=== PATIENT | male | born 1945 | race Caucasian/White ===

== ENCOUNTER 2021-12-19 09:16 | Inpatient (IN) ==
--- NOTE | 2021-12-19 09:43 | XRay Report ---
HISTORY: Hypoxia, Covid positive, cough FINDINGS: There are hazy alveolar infiltrates throughout both lungs predominantly involving the lower lobes. There may be a small left-sided pleural effusion. The lung volumes are normal. The heart size is within normal limits. There are calcified plaques in the aortic arch. IMPRESSION: Moderate bilateral pneumonia Interpreted and Authenticated by: Mulugeta Menezes 12/19/21
[2021-12-19 10:36] LABS: Basophils # (Auto) 0.03 K/mcL (0.00-0.30); Basophils % (Auto) 0.3 % (0.0-2.0); Eosinophils # (Auto) 0.28 K/mcL (0.00-0.70); Eosinophils % (Auto) 2.9 % (0.0-7.0); Hematocrit 49.4 % (40.1-51.0); Hemoglobin 16.1 g/dL (13.7-17.5); Lymphocytes # (Auto) 1.01 K/mcL (1.50-4.80); Lymphocytes % (Auto) 10.3 % (15.5-49.0); Mean Cell Volume 82.7 fL (80.0-100.0); Mean Corpuscular HGB Conc 32.6 g/dL (31.0-36.0); Mean Platelet Volume 9.4 fL (7.4-10.4); Monocytes # (Auto) 0.76 K/mcL (0.10-0.90); Monocytes % (Auto) 7.8 % (1.0-12.0); Neutrophils % (Auto) 78.7 % (38.0-78.0); Platelet Count 226 K/mcL (140-440); RBC 5.97 M/mcL (4.63-6.08); Red Cell Distribution Width 16.9 % (11.5-14.5); WBC 9.8 K/mcL (4.5-11.0)
--- NOTE | 2021-12-19 10:37 | Emergency Department Note ---
HPI General Chief complaint: Shortness of Breath/Dyspnea Stated complaint: hypoxia Time Seen by Provider: 12/19/21 09:46 Source: patient Mode of arrival: ambulatory Limitations: no limitations History of Present Illness HPI Narrative: Narrative: 76 yo M w/ h/o CKD, HTN, HLD, Castleman disease (lymphoproliferative d/o) obesity who is vaccinated against COVID p/w SOB and hypoxia. He was Dx'd w/ COVID19 about one week ago at his PCPs office, and was started on decadron and tessalon perrles. He came in today for planned MAB Tx but was found to be hypoxic and was referred here. Here in the ED he c/o mild SOB, dry cough, malaise, but reports that his SX have been improving. He has no CP, no N/V/D. He has had some increased on chronic peripheral edema but attributes this to skipping his water pill today as he had to come in to town. Related Data Home Medications Medication Instructions Recorded Confirmed carvedilol 25 mg tablet 12.5 mg PO QDAY tab 07/31/16 12/11/21 cholecalciferol (vitamin D3) 125 5,000 unit PO QDAY cap 07/31/16 12/11/21 mcg (5,000 unit) capsule lisinopril 20 mg tablet 10 mg PO QDAY 07/31/16 12/11/21 pravastatin 40 mg tablet 40 mg PO QHS 07/31/16 12/11/21 spironolactone 25 1 tab PO QDAY 07/31/16 12/11/21 mg-hydrochlorothiazide 25 mg tablet latanoprost 0.005 % eye drops 1 drp OPHTHALMIC QDAY 09/17/17 12/11/21 torsemide 20 mg tablet 10 mg PO QDAY tab 06/13/21 12/11/21 Previous Rx's Medication Instructions Recorded epinephrine 0.3 mg/0.3 mL 0.3 mg (0.3 mL) IM ONCE #2 each 05/04/19 injection, auto-injector (EpiPen 2-Tam) clobetasol 0.05 % topical cream 1 applic TOPICAL BID 14 Days #15 g 07/18/20 tramadol 50 mg tablet 50 mg PO QHS PRN #90 tab 05/16/21 benzonatate 100 mg capsule 100 mg PO TID PRN #30 cap 12/11/21 dexamethasone 6 mg tablet 6 mg PO QDAY #10 tab 12/11/21 Allergies Allergy/AdvReac Type Severity Reaction Status Date / Time bee venom protein (honey bee) Allergy Severe Anaphylaxis Verified 12/19/21 09:21 hydrocodone Allergy Severe Rash Verified 12/19/21 09:21 oxycodone [Oxycodone] Allergy Severe Rash Verified 12/19/21 09:21 prednisone Allergy Severe Effects Verified 12/19/21 09:21 vision allopurinol Allergy Unknown Severe rash Verified 12/19/21 09:21 Review of Systems ROS ROS Narrative: Narrative: All systems ED: reviewed and negative except as stated. [facility] Narrative Patient History Narrative: Narrative: Medical/Surgical/Family History All Active Problems (Updated 12/19/21 @ 11:56 by Harsha Vazquez MD) Acute dyspnea (Acute) Pneumonia due to 2019 novel coronavirus (Acute) CKD (chronic kidney disease) (Acute) Obesity (Acute) Medicare annual wellness visit, initial (Acute) Bee sting reaction (Acute) Osteoarthritis of left knee (Chronic) BPPV (benign paroxysmal positional vertigo) (Acute) Chronic kidney disease, stage III (moderate) (Chronic) Past history of chewing tobacco use (Chronic) Vitamin D deficiency (Chronic) Renal osteodystrophy (Chronic 05/21/12) Obesity, morbid (Chronic) Castleman disease (Chronic) Joint pain (Chronic) Hyperlipidemia (Chronic) Hypertension, essential (Chronic) Arthritis (Chronic) Medical History Acute sinusitis, unspecified Arthritis BPPV (benign paroxysmal positional vertigo) Bronchitis, acute Castleman disease 2006 Chronic kidney disease, stage III (moderate) DMII (diabetes mellitus, type 2) Borderline Gout (05/21/12) Hyperlipidemia Hypertension, essential Impotence, organic Joint pain Kidney failure 2006 Medicare annual wellness visit, initial Migraine Obesity Obesity, morbid Overweight Past history of chewing tobacco use Pharyngitis, acute Pleural effusion Renal failure, acute history due to ATN, May 2007. Which required hemodialysis for a few weeks. Renal osteodystrophy (05/21/12) SOB (shortness of breath) Venous insufficiency Vitamin D deficiency Surgical History H/O lymph node biopsy (06/08/07) Microscopic Diagnosis; Lymph node - Mediastinal, biopsy: Angiofollicular hyperplasia, consistent with cattleman disease. History of arthroplasty of right knee (11/07/17) Hx of tonsillectomy Family History Father Arthritis Hypertension, essential Mother Arthritis Diabetes Hypertension, essential Stroke Daughter Anemia Social History Smoking Status: Former smoker Alcohol Intake Frequency: a few times a week Substance Use: does not use Exam Narrative Narrative: Narrative: General Limitations: no limitations General appearance: Present alert and in no apparent distress Head Head: Present atraumatic and normocephalic ENT ENT: Present normal oropharynx and mucous membranes moist Chest Chest: Present normal inspection and symmetric chest wall rise Respiratory Respiratory: Present normal lung sounds bilaterally; Absent accessory muscle use or decreased breath sounds Cardiovascular Cardiovascular: Present regular rate, normal rhythm, +S1, +S2 and other (2+ B/L radial pulses); Absent systolic murmur or diastolic murmur Adbominal Abdominal: Present soft and normal bowel sounds; Absent distention or tenderness Extremities Extremities: Present pedal edema (1+ B/L pitting) and other (R calf TTP which pt reports is chronic, L calf w/ no TTP) Neurological Neurological: Present alert and oriented X3 Psychiatric Psychiatric: Present normal affect Skin Skin: Present warm (WNL) and dry Course Vital Signs Vital signs: Vital Signs Temperature 97.4 F 12/19/21 09:17 Pulse Rate 92 H 12/19/21 09:17 Respiratory Rate 21 12/19/21 09:17 Blood Pressure 154/76 12/19/21 09:17 Pulse Oximetry (%) 77 L 12/19/21 09:17 Temperature 97.4 F 12/19/21 09:17 Pulse Rate 92 H 12/19/21 12:23 Respiratory Rate 22 12/19/21 12:23 Blood Pressure 120/63 12/19/21 12:23 Pulse Oximetry (%) 92 12/19/21 12:23 MDM MDM Narrative Medical decision making narrative: Narrative: 76 yo M w/ h/o CKD, HTN, HLD, Castleman disease (lymphoproliferative d/o) obe sity who is vaccinated against COVID p/w SOB and hypoxia. DDx - COVID19, sepsis, PE, bacterial PNA, CHF Pt presented clinically stable, in NAD. His Hx was c/w COVID19 PNA and CXR was c/w this as well. He did not have leukocytosis or other evidence of bacterial sepsis, there was no indication for abx. PE was unlikely w/ no recent worsening, and w/ pt exhibiting classic "happy hypoxia" Sx. CHF was unlikely based on CXR and presence of COVID to better explain Sx and hypoxia. Pt was Tx'd w/ 2L NC which was effective at keeping his sats in the 90s at rest but w/ any ambulation he would drop to the low 80s. He was thus at risk for decompensation at home even w/ home O2 and admission was indicated. Given hypoxia and hospital admission, decadron was indicated and was given in the ED, although I'm not sure how helpful it will be given his previous outpt doses of the same. Pt was accepted by Dr Weiss. Lab Data Lab results reviewed: Yes I reviewed the patient's lab results. Result diagrams: 12/19/21 10:00 12/19/21 10:00 Labs: Lab Results 12/19/21 12/19/21 12/19/21 Range/Units 10:00 10:00 10:00 WBC 9.8 (4.5-11.0) K/mcL RBC 5.97 (4.63-6.08) M/mcL Hgb 16.1 (13.7-17.5) g/dL Hct 49.4 (40.1-51.0) % MCV 82.7 (80.0-100.0) fL MCH 27.0 (26.0-34.0) pg MCHC 32.6 (31.0-36.0) g/dL RDW 16.9 H (11.5-14.5) % Plt Count 226 (140-440) K/mcL MPV 9.4 (7.4-10.4) fL Neut % (Auto) 78.7 H (38.0-78.0) % Lymph % (Auto) 10.3 L (15.5-49.0) % [place] % (Auto) 7.8 (1.0-12.0) % Eos % (Auto) 2.9 (0.0-7.0) % Baso % (Auto) 0.3 (0.0-2.0) % Lymph # (Auto) 1.01 L (1.50-4.80) K/mcL [place] # (Auto) 0.76 (0.10-0.90) K/mcL Eos # (Auto) 0.28 (0.00-0.70) K/mcL Baso # (Auto) 0.03 (0.00-0.30) K/mcL Absolute Neutrophils 7.69 (1.80-8.00) K/mcL VBG Lactic Acid 1.0 (0.5-2.0) mmol/L Sodium 135 (133-145) mmol/L Potassium 4.0 (3.3-5.1) mmol/L Chloride 95 L (96-108) mmol/L Carbon Dioxide 30 (22-30) mmol/L Anion Gap 10.0 (8.0-16.0) BUN 19 (8-23) mg/dL Creatinine 1.1 (0.7-1.2) mg/dL GFR Calculation 65 Glucose 107 H (70-105) mg/dL Calcium 8.5 L (8.6-10.4) mg/dL Total Bilirubin 1.1 H (0.1-1.0) mg/dL AST 17 (<40) U/L ALT 15 (<40) U/L Alkaline Phosphatase 48 (39-117) U/L Total Protein 6.7 (5.9-8.4) gm/dL Albumin 3.0 L (3.2-5.2) gm/dL Globulin 3.7 (2.2-3.7) gm/dL Albumin/Globulin Ratio 0.8 L (1.0-2.3) Procalcitonin 0.11 H (<0.10) ng/mL Discharge Plan Patient/Caregiver Discharge Instructions Pt seen by SOLE ASSESSOR/PA only: No Clinical Impression: Acute dyspnea, Pneumonia due to 2019 novel coronavirus, CKD (chronic kidney disease), Obesity Patient Disposition: Xfer As Inpt ([facility]) Condition: Fair Follow up with: Aneesh Head DO [Primary Care Provider] - Prescriptions: No Action epinephrine [EpiPen 2-Tam] 0.3 mg/0.3 mL auto-injector 0.3 mg IM ONCE Qty: 2 2RF clobetasol 0.05 % cream 1 applic TOPICAL BID 14 Days Qty: 15 0RF carvedilol 25 mg tablet 12.5 mg PO QDAY 0RF pravastatin 40 mg tablet 40 mg PO QHS 0RF spironolacton-hydrochlorothiaz 25-25 mg tablet 1 tab PO QDAY 0RF lisinopril 20 mg tablet 10 mg PO QDAY 0RF cholecalciferol (vitamin D3) 5,000 unit capsule 5,000 unit PO QDAY 0RF latanoprost 0.005 % drops 1 drp OPHTHALMIC QDAY 0RF tramadol 50 mg tablet 50 mg PO QHS PRN (Reason: pain) Qty: 90 0RF torsemide 20 mg tablet 10 mg PO QDAY 0RF dexamethasone 6 mg tablet 6 mg PO QDAY Qty: 10 0RF benzonatate 100 mg capsule 100 mg PO TID PRN (Reason: cough) Qty: 30 0RF
[2021-12-19 11:08] LABS: ALT/SGPT 15 U/L (<40); AST/SGOT 17 U/L (<40); Albumin/Globulin Ratio 0.8 (1.0-2.3); Alkaline Phosphatase 48 U/L (39-117); Bilirubin,Total 1.1 mg/dL (0.1-1.0); Blood Urea Nitrogen 19 mg/dL (8-23); Calcium 8.5 mg/dL (8.6-10.4); Carbon Dioxide 30 mmol/L (22-30); Chloride 95 mmol/L (96-108); Globulin 3.7 gm/dL (2.2-3.7); Glomerular Filtration Rate 65; Glucose 107 mg/dL (70-105)
[2021-12-19] MEDS ORDERED: DEXAMETHASONE 10 MG/ML VIAL IV ONE (11:31)
--- NOTE | 2021-12-19 13:19 | Internal Med History&Physical ---
HPI History of Present Illness Patient information: Note initiated : 12/19/21 at 1:12 pm Service Date, if different from initiated Date: [] Patient: Ryley Moyer a 76 y/o M admitted on for hypoxia. Chief Complaint: [Shortness of breath Chief complaint: Shortness of breath History of present illness: Mr. Moyer is a 76 year old M history of chronic kidney disease stage III, essential hypertension, mixed dyslipidemia, arthritis, presenting with 1 week history of shortness of breath, and productive cough with yellow sputum. He is vaccinated against COVID-pneumonia. He started to have symptoms of shortness of breath as well as productive cough with yellow sputum 1 week ago. He presented to his PCP office, was being diagnosed with COVID-pneumonia, and was being prescribed with dexamethasone. Today, he was supposed to come back to the office for monoclonal antibodies administrations, but instead was found to be hypoxic with oxygen saturations in the 70s on room air so he was being sent to our ED for further evaluations. He was placed on 2 L of oxygen which maintains his SPO2 in the 90s. His oxygen saturations dropped to the 80s on 2 L of oxygen upon ambulation so admission request was being made. Labs were otherwise largely within normal limits except for mild elevation in inflammatory markers. Chest x-ray showing bilateral pulmonary infiltrates typical for COVID- pneumonia. Constitutional Constitutional: Absent chills, excessive sweating, fatigue, fever(s) or weakness EENT Eyes: Absent blurry vision, change in vision, loss of vision or other visual disturbances Ears: Absent decreased hearing or tinnitus Nose, mouth and throat: Absent abnormal hearing, dry mouth, headache(s), nasal congestion or sore throat Cardiovascular Cardiovascular: Absent chest pain, chest pain at rest, edema, irregular heart rhythm or palpatations Respiratory Respiratory: Present cough, dyspnea and excessive phlegm production; Absent wheezing Gastrointestinal Gastrointestinal: Absent abdominal pain, constipation, diarrhea, nausea or vomiting Musculoskeletal Musculoskeletal: Absent back pain, deformity, limited range of motion, muscle cramps, muscle weakness or numbness Integumentary Integumentary: Absent lesions, rash or wounds Neurological Neurological: Absent focal weakness, headache(s) or numbness Psychiatric Psychiatric: Absent anxiety, depression or hallucinations PFSH PFSH All Active Problems (Updated 12/19/21 @ 13:17 by Ko Weiss MD) Morbid obesity (Acute) Acute dyspnea (Acute) Pneumonia due to 2019 novel coronavirus (Acute) CKD (chronic kidney disease) (Acute) Obesity (Acute) Medicare annual wellness visit, initial (Acute) Bee sting reaction (Acute) Osteoarthritis of left knee (Chronic) BPPV (benign paroxysmal positional vertigo) (Acute) Chronic kidney disease, stage III (moderate) (Chronic) Past history of chewing tobacco use (Chronic) Vitamin D deficiency (Chronic) Renal osteodystrophy (Chronic 05/21/12) Obesity, morbid (Chronic) Castleman disease (Chronic) Joint pain (Chronic) Hyperlipidemia (Chronic) Hypertension, essential (Chronic) Arthritis (Chronic) Medical History Acute sinusitis, unspecified Arthritis BPPV (benign paroxysmal positional vertigo) Bronchitis, acute Castleman disease 2006 Chronic kidney disease, stage III (moderate) DMII (diabetes mellitus, type 2) Borderline Gout (05/21/12) Hyperlipidemia Hypertension, essential Impotence, organic Joint pain Kidney failure 2006 Medicare annual wellness visit, initial Migraine Obesity Obesity, morbid Overweight Past history of chewing tobacco use Pharyngitis, acute Pleural effusion Renal failure, acute history due to ATN, May 2007. Which required hemodialysis for a few weeks. Renal osteodystrophy (05/21/12) SOB (shortness of breath) Venous insufficiency Vitamin D deficiency Surgical History H/O lymph node biopsy (06/08/07) Microscopic Diagnosis; Lymph node - Mediastinal, biopsy: Angiofollicular hyperplasia, consistent with cattleman disease. History of arthroplasty of right knee (11/07/17) Hx of tonsillectomy Family History Father Arthritis Hypertension, essential Mother Arthritis Diabetes Hypertension, essential Stroke Daughter Anemia Social History marital status: occupation: drill setup operator-tractor and manager auto for [employer] other: Children-3 alcohol intake frequency: a few times a week substance use type: does not use MEDS/ALLERGIES Home Medications and Allergies Home Medications Medication Instructions Recorded Confirmed Type carvedilol 25 mg tablet 12.5 mg PO QDAY tab 07/31/16 12/11/21 History cholecalciferol (vitamin D3) 125 5,000 unit PO QDAY cap 07/31/16 12/11/21 History mcg (5,000 unit) capsule lisinopril 20 mg tablet 10 mg PO QDAY 07/31/16 12/11/21 History pravastatin 40 mg tablet 40 mg PO QHS 07/31/16 12/11/21 History spironolactone 25 1 tab PO QDAY 07/31/16 12/11/21 History mg-hydrochlorothiazide 25 mg tablet latanoprost 0.005 % eye drops 1 drp OPHTHALMIC QDAY 09/17/17 12/11/21 History epinephrine 0.3 mg/0.3 mL 0.3 mg (0.3 mL) IM ONCE #2 each 05/04/19 12/11/21 Rx injection, auto-injector (EpiPen 2-Tam) clobetasol 0.05 % topical cream 1 applic TOPICAL BID 14 Days #15 g 07/18/20 12/11/21 Rx tramadol 50 mg tablet 50 mg PO QHS PRN #90 tab 05/16/21 12/11/21 Rx torsemide 20 mg tablet 10 mg PO QDAY tab 06/13/21 12/11/21 History benzonatate 100 mg capsule 100 mg PO TID PRN #30 cap 12/11/21 12/11/21 Rx dexamethasone 6 mg tablet 6 mg PO QDAY #10 tab 12/11/21 12/11/21 Rx Allergies Allergy/AdvReac Type Severity Reaction Status Date / Time bee venom protein (honey bee) Allergy Severe Anaphylaxis Verified 12/19/21 09:21 hydrocodone Allergy Severe Rash Verified 12/19/21 09:21 oxycodone [Oxycodone] Allergy Severe Rash Verified 12/19/21 09:21 prednisone Allergy Severe Effects Verified 12/19/21 09:21 vision allopurinol Allergy Unknown Severe rash Verified 12/19/21 09:21 EXAM Constitutional Vitals: Temp Pulse Resp BP Pulse Ox 36.3 C 82 22 111/57 92 12/19/21 09:17 12/19/21 12:46 12/19/21 13:01 12/19/21 13:01 12/19/21 12:46 General appearance: cooperative, morbidly obese and no acute distress Head Head exam: Present atraumatic and normocephalic Eye Eye exam: Present EOMI and PERRL ENT ENT exam: Present mucous membranes moist, normal exam and normal external ear exam Additional comments: Nasal cannula in place Neck Neck exam: Present normal inspection; Absent lymphadenopathy, tenderness or thyromegaly Respiratory Respiratory exam: Present decreased breath sounds and wheezes; Absent accessory muscle use or respiratory distress Cardiovascular Cardiovascular exam: Present normal rate and rhythm; Absent JVD GI/Abdominal GI/Abdominal exam: Present normal bowel sounds and soft; Absent organomegaly or tenderness Rectal Rectal exam: Present deferred Extremities Exam Extremities exam: Present full ROM, normal capillary refill and normal inspection; Absent tenderness Neurological Exam Neurological exam: Present alert, CN II-XII intact and oriented X3; Absent motor sensory deficit Psychiatric Psychiatric exam: Present normal affect and normal mood; Absent anxious or depressed Skin Skin exam: Present dry and intact DATA Data Completed and Pending Labs: Labs from last 24 hours 12/19/21 12/19/21 12/19/21 10:00 10:00 10:00 WBC 9.8 RBC 5.97 Hgb 16.1 Hct 49.4 MCV 82.7 MCH 27.0 MCHC 32.6 RDW 16.9 H Plt Count 226 MPV 9.4 Neut % (Auto) 78.7 H Lymph % (Auto) 10.3 L [place] % (Auto) 7.8 Eos % (Auto) 2.9 Baso % (Auto) 0.3 Lymph # (Auto) 1.01 L [place] # (Auto) 0.76 Eos # (Auto) 0.28 Baso # (Auto) 0.03 Absolute Neutrophils 7.69 VBG Lactic Acid 1.0 Sodium 135 Potassium 4.0 Chloride 95 L Carbon Dioxide 30 Anion Gap 10.0 BUN 19 Creatinine 1.1 GFR Calculation 65 Glucose 107 H Calcium 8.5 L Total Bilirubin 1.1 H AST 17 ALT 15 Alkaline Phosphatase 48 Total Protein 6.7 Albumin 3.0 L Globulin 3.7 Albumin/Globulin Ratio 0.8 L Procalcitonin 0.11 H A/P Assessment and plan (1) Pneumonia due to 2019 novel coronavirus: Status: Acute (2) Acute dyspnea: Status: Acute (3) Hyperlipidemia: Status: Chronic Qualifiers: Hyperlipidemia type: pure hypercholesterolemia Qualified Code(s): E78.00 - Pure hypercholesterolemia, unspecified; E78.0 - Pure hypercholesterolemia (4) Hypertension, essential: Status: Chronic (5) Arthritis: Status: Chronic (6) Chronic kidney disease, stage III (moderate): Status: Chronic Qualifiers: Chronic kidney disease stage 3 subtype: stage 3a (GFR 45-59) Qualified Code(s): N18.31 - Chronic kidney disease, stage 3a (7) Morbid obesity: Status: Acute Narrative A/P Narrative: Assessment and Plans: 1. CoVID pneumonia: Admit to inpatient med surg telemetry Isolation: airborne and contact Supplemental oxygen therapy titrate to achieve spo2>92%, currently on 2L/min Remdesivir Dexamethasone Lovenox Tylenol PRN fever DuoNEB NEB PRN wheezing Robitussin DM PRN cough cbc w/ auto diff in the morning to trend WBC Inflammatory markers Blood cultures X2 Serial Lactic acid 2. Essential HTN: Currently nornotensive Continue home regimen of oral antihypertensives 3. Mixed dyslipidemia: Continue statin therapy 4. Chronic kidney disease stage III: Avoid nephrotoxic agents Saline lock Daily CMP to trend kidney functions 5. 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 h/o arthritis: Continue Tramadol PRN arthritic pain GI ppx: not currently indicated DVT ppx: Lovenox Code status: Full Prognosis: guarded Disposition: inpatient med surg telemetry Time Spent With Patient Time: Total time spent is greater than 50% in coordination of care (as documented) at patient's floor/unit and/or counseling patient: Total time spent with greater than 50% in coordination of care (as documented) at patient's floor/unit and/or counseling patient:: Greater than 35 minutes
[2021-12-19] MEDS ORDERED: REMDESIVIR 200 MG in 0.9 % SODIUM CHLORIDE 250 ML IV ONE (18:55)
[2021-12-19] MEDS ORDERED: hydrALAZINE 20 MG/ML VIAL IV PRN (18:55)
[2021-12-19] MEDS ORDERED: ONDANSETRON 4 MG/2 ML VIAL IV PRN (18:55)
[2021-12-19] MEDS ORDERED: traMADol (PP) 50 MG TABLET (#4) PO PRN (18:55)
[2021-12-19] MEDS ORDERED: ACETAMINOPHEN 325 MG TABLET PO PRN (18:55)
[2021-12-19] MEDS ORDERED: ZOLPIDEM 5 MG TABLET PO PRN (18:55)
[2021-12-19] MEDS ORDERED: IPRATROPIUM/ALBUTEROL 3 ML AMPUL.NEB NEB PRN (18:55)
[2021-12-19] MEDS ORDERED: guaiFENesin/DEXTROMETHORPHAN ORAL SOL PO PRN (18:55)
[2021-12-19] MEDS ORDERED: BENZONATATE 100 MG CAPSULE PO PRN (18:55)
[2021-12-19] MEDS ORDERED: traMADol 50 MG TABLET PO PRN (19:01)
[2021-12-19] MEDS: 0.9 % SODIUM CHLORIDE 10 ML SYRINGE IV SCH ×2 (19:42→20:37)
[2021-12-19] MEDS: SENNOSIDES 1 TABLET PO SCH (20:13)
[2021-12-19] MEDS: DOCUSATE SODIUM 100 MG CAPSULE PO SCH (20:13)
[2021-12-19] MEDS: CLOBETASOL PROPIONATE 1 DOSE TUBE TOPICAL SCH (20:13)
[2021-12-19] MEDS: SIMVASTATIN 20 MG TABLET PO SCH (20:13)
[2021-12-19] MEDS ORDERED: PRAVASTATIN 40 MG TABLET PO SCH (21:00)
[2021-12-19 21:11] LABS: Lactate Dehydrogenase 302 U/L (135-225)
[2021-12-19 21:15] LABS: INR 1.3 (0.9-1.1); Prothrombin Time 16.5 sec (11.9-14.5)
[2021-12-19 21:21] LABS: Ferritin 295.7 ng/mL (30.0-400.0)
[2021-12-20] MEDS: 0.9 % SODIUM CHLORIDE 10 ML SYRINGE IV SCH ×3 (04:21→22:00)
[2021-12-20 07:15] LABS: Basophils # (Auto) 0.02 K/mcL (0.00-0.30); Basophils % (Auto) 0.3 % (0.0-2.0); Eosinophils # (Auto) 0.05 K/mcL (0.00-0.70); Eosinophils % (Auto) 0.7 % (0.0-7.0); Hematocrit 45.9 % (40.1-51.0); Hemoglobin 14.6 g/dL (13.7-17.5); Lymphocytes # (Auto) 0.79 K/mcL (1.50-4.80); Mean Cell Volume 84.5 fL (80.0-100.0); Mean Corpuscular HGB Conc 31.8 g/dL (31.0-36.0); Mean Platelet Volume 9.2 fL (7.4-10.4); Monocytes # (Auto) 0.57 K/mcL (0.10-0.90); Platelet Count 215 K/mcL (140-440); RBC 5.43 M/mcL (4.63-6.08); Red Cell Distribution Width 16.4 % (11.5-14.5); WBC 7.2 K/mcL (4.5-11.0)
[2021-12-20 07:36] LABS: ALT/SGPT 14 U/L (<40); AST/SGOT 16 U/L (<40); Albumin 2.6 gm/dL (3.2-5.2); Albumin/Globulin Ratio 0.7 (1.0-2.3); Alkaline Phosphatase 47 U/L (39-117); Bilirubin,Total 0.7 mg/dL (0.1-1.0); Blood Urea Nitrogen 20 mg/dL (8-23); Calcium 8.3 mg/dL (8.6-10.4); Carbon Dioxide 28 mmol/L (22-30); Chloride 100 mmol/L (96-108); Globulin 3.6 gm/dL (2.2-3.7); Glomerular Filtration Rate 65; Glucose 100 mg/dL (70-105); Phosphorous 3.7 mg/dL (2.5-4.5)
[2021-12-20] MEDS ORDERED: [UNRECOGNIZED DRUG - OTHER] PO SCH (09:00)
[2021-12-20] MEDS: DOCUSATE SODIUM 100 MG CAPSULE PO SCH ×2 (09:34→22:00)
[2021-12-20] MEDS: CARVEDILOL 12.5 MG TABLET PO SCH (09:34)
[2021-12-20] MEDS: ENOXAPARIN 40 MG/0.4 ML SYRINGE SQ SCH (09:34)
[2021-12-20] MEDS: LISINOPRIL 20 MG TABLET PO SCH (09:35)
[2021-12-20] MEDS: DEXAMETHASONE 4 MG TABLET PO SCH (09:35)
[2021-12-20] MEDS: VITAMIN D3 125 MCG TABLET PO SCH (09:35)
[2021-12-20] MEDS: HYDROCHLOROTHIAZIDE 25 MG TABLET PO SCH (09:35)
[2021-12-20] MEDS: LATANOPROST OPHTH DROPS 2.5ML BOTTLE OU SCH (09:36)
[2021-12-20] MEDS: SPIRONOLACTONE 25 MG TABLET PO SCH (09:36)
[2021-12-20] MEDS: CLOBETASOL PROPIONATE 1 DOSE TUBE TOPICAL SCH ×2 (09:36→22:00)
[2021-12-20] MEDS: REMDESIVIR 100 MG in 0.9 % SODIUM CHLORIDE 250 ML IV SCH (12:16)
[2021-12-20] MEDS: TORSEMIDE 20 MG TABLET PO SCH (12:16)
--- NOTE | 2021-12-20 15:13 | Internal Med Progress Note ---
SUBJECTIVE Subjective Patient information: Note initiated : 12/20/21 at 3:10 pm Service Date, if different from initiated Date: [] Patient: Ryley Moyer a 76 y/o M admitted on 12/19/21 for hypoxia. Chief Complaint: [shortness of breath] Principal diagnosis: CoVID pneumonia Interval history: History of present illness: Mr. Moyer is a 76 year old M history of chronic kidney disease stage III, essential hypertension, mixed dyslipidemia, arthritis, presenting with 1 week history of shortness of breath, and productive cough with yellow sputum. He is vaccinated against COVID-pneumonia. He started to have symptoms of shortness of breath as well as productive cough with yellow sputum 1 week ago. He presented to his PCP office, was being diagnosed with COVID-pneumonia, and was being prescribed with dexamethasone. Today, he was supposed to come back to the office for monoclonal antibodies administrations, but instead was found to be hypoxic with oxygen saturations in the 70s on room air so he was being sent to our ED for further evaluations. He was placed on 2 L of oxygen which maintains his SPO2 in the 90s. His oxygen saturations dropped to the 80s on 2 L of oxygen upon ambulation so admission request was being made. Labs were otherwise largely within normal limits except for mild elevation in inflammatory markers. Chest x-ray showing bilateral pulmonary infiltrates typical for COVID-pneumonia. 12/20: Afebrile overnight. On 3L/min oxygen. Blood cultures no growth to date. On dexamethasone and Remdesivir. c/o improving degree of shortness of breath. c/o productive cough wtih green sputum. Denies wheezing or chest pain. Denies fever, chills, or sweating. Pertinent ROS: c/o improving degree of shortness of breath. c/o productive cough wtih green sputum. Denies wheezing or chest pain. Denies fever, chills, or sweating. Constitutional Vitals: Vital Signs Temp Pulse Resp BP Pulse Ox 36.3 C 80 16 108/71 93 12/20/21 12:00 12/20/21 12:00 12/20/21 12:00 12/20/21 12:00 12/20/21 12:00 Period Temp Pulse Resp BP Sys/Lynch Pulse Ox Last 24 Hr 36.3 C-36.5 C 71-93 15-27 108-172/65-119 89-94 Intake and Output 12/20/21 12/20/21 12/20/21 05:59 13:59 21:59 Intake Total 650 480 Output Total 300 350 Balance 350 130 Weight 181.437 kg Patient Weight 12/21/21 05:59 Weight 181.437 kg Intake & Output: Intake & Output 12/20/21 12/20/21 12/20/21 05:59 13:59 21:59 Intake Total 650 480 Output Total 300 350 Balance 350 130 Weight 181.437 kg Intake: IV 250 Veklury 200 mg In Sodium 250 Chloride 0.9% 250 ml @ 500 mls/ hr IV ONCE ONE Rx#:[id number] Oral 400 480 Output: Void Amount 300 350 Other: Meal Breakfast Percent of Meal Consumed 100% Feeding Ability Independent Urine Appearance Clear Urine Color Bright Yellow General appearance: cooperative, morbidly obese and no acute distress Head Head exam: Present atraumatic and normal inspection Eye Eye exam: Present normal appearance ENT ENT exam: Present mucous membranes moist, normal exam and normal external ear exam Additional comments: Nasal cannula in place Neck Neck exam: Present normal inspection Respiratory Respiratory exam: Present decreased breath sounds Cardiovascular Cardiovascular exam: Present normal rate and rhythm GI/Abdominal GI/Abdominal exam: Present normal bowel sounds Back Exam Back exam: Present normal inspection Neurological Exam Neurological exam: Present alert and oriented X3 Skin Skin exam: Present intact and warm OBJ DATA Labs CBC & Chem 7: 12/20/21 05:27 12/20/21 05:27 Labs: Abnormal Lab Results 12/20/21 12/20/21 12/19/21 05:27 05:27 19:48 RDW 16.4 H Neut % (Auto) 80.0 H Lymph % (Auto) 11.0 L Lymph # (Auto) 0.79 L PT INR Fibrinogen D-Dimer Chloride Glucose Calcium 8.3 L Total Bilirubin Lactate Dehydrogenase 302 H C-Reactive Protein 7.90 H Albumin 2.6 L Albumin/Globulin Ratio 0.7 L Procalcitonin 12/19/21 12/19/21 12/19/21 19:48 10:00 10:00 RDW Neut % (Auto) Lymph % (Auto) Lymph # (Auto) PT 16.5 H INR 1.3 H Fibrinogen 643 H D-Dimer 1.03 H Chloride 95 L Glucose 107 H Calcium 8.5 L Total Bilirubin 1.1 H Lactate Dehydrogenase C-Reactive Protein Albumin 3.0 L Albumin/Globulin Ratio 0.8 L Procalcitonin 0.11 H 12/19/21 10:00 RDW 16.9 H Neut % (Auto) 78.7 H Lymph % (Auto) 10.3 L Lymph # (Auto) 1.01 L PT INR Fibrinogen D-Dimer Chloride Glucose Calcium Total Bilirubin Lactate Dehydrogenase C-Reactive Protein Albumin Albumin/Globulin Ratio Procalcitonin Meds: Medications Acetaminophen (Acetaminophen 325 Mg Tablet) 650 mg PO Q6HP PRN; Protocol PRN Reason: Per Pain Protocol/Fever > 101 Albuterol/Ipratropium (Ipratropium/Albuterol 3 Ml Ampul.Neb) 3 ml NEB Q4HRT PRN PRN Reason: Wheezing Benzonatate (Benzonatate 100 Mg Capsule) 100 mg PO TIDP PRN PRN Reason: cough Carvedilol (Carvedilol 12.5 Mg Tablet) 12.5 mg PO QDAY [facility] Last Admin: 12/20/21 09:34 Dose: 12.5 mg Documented by: Clobetasol Propionate (Clobetasol Propionate 1 Dose Tube) 1 dose TOPICAL BID [facility] Last Admin: 12/20/21 09:36 Dose: Not Given Documented by: Dexamethasone (Dexamethasone 4 Mg Tablet) 6 mg PO QDAY [facility] Last Admin: 12/20/21 09:35 Dose: 6 mg Documented by: Docusate Sodium (Docusate Sodium 100 Mg Capsule) 100 mg PO BID [facility] Last Admin: 12/20/21 09:34 Dose: 100 mg Documented by: Enoxaparin Sodium (Enoxaparin 40 Mg/0.4 Ml Syringe) 40 mg SQ DAILY [facility] Last Admin: 12/20/21 09:34 Dose: 40 mg Documented by: Guaifenesin (Guaifenesin/Dextromethorphan Oral Mel) 10 ml PO Q4HP PRN PRN Reason: Cough Hydralazine HCl (Hydralazine 20 Mg/Ml Vial) 10 mg IV Q4-6HP PRN PRN Reason: Hypertension Hydrochlorothiazide (Hydrochlorothiazide 25 Mg Tablet) 25 mg PO DAILY [facility] Last Admin: 12/20/21 09:35 Dose: 25 mg Documented by: REMDESIVIR 100 mg/ Sodium (Chloride) 250 mls @ 500 mls/hr IV Q24H [facility] Stop: 12/23/21 11:29 Last Admin: 12/20/21 12:16 Dose: 500 mls/hr Documented by: Latanoprost (Latanoprost Ophth Drops 2.5ml Bottle) 1 gtt OU QDAY [facility] Last Admin: 12/20/21 09:36 Dose: Not Given Documented by: Lisinopril (Lisinopril 20 Mg Tablet) 10 mg PO QDAY [facility] Last Admin: 12/20/21 09:35 Dose: 10 mg Documented by: Ondansetron HCl (Ondansetron 4 Mg/2 Ml Vial) 4 mg IV Q6HP PRN PRN Reason: Nausea And Vomiting Senna (Sennosides 1 Tablet) 2 tab PO [facility] Last Admin: 12/19/21 20:13 Dose: 2 tab Documented by: Simvastatin (Simvastatin 20 Mg Tablet) 20 mg PO [facility] Last Admin: 12/19/21 20:13 Dose: 20 mg Documented by: Sodium Chloride (0.9 % Sodium Chloride 10 Ml Syringe) 10 ml IV Q8 [facility] Last Admin: 12/20/21 12:17 Dose: 10 ml Documented by: Spironolactone (Spironolactone 25 Mg Tablet) 25 mg PO DAILY [facility] Last Admin: 12/20/21 09:36 Dose: 25 mg Documented by: Torsemide (Torsemide 20 Mg Tablet) 10 mg PO QDAY [facility] Last Admin: 12/20/21 12:16 Dose: 10 mg Documented by: Tramadol HCl (Tramadol 50 Mg Tablet) 50 mg PO QHS PRN; Protocol PRN Reason: Pain Vitamin D (Vitamin D3 125 Mcg Tablet) 125 mcg PO QDAY [facility] Last Admin: 12/20/21 09:35 Dose: 125 mcg Documented by: Zolpidem Tartrate (Zolpidem 5 Mg Tablet) 5 mg PO HSP PRN PRN Reason: Insomnia A/P Assessment and plan (1) Pneumonia due to 2019 novel coronavirus: Status: Acute (2) Acute dyspnea: Status: Acute (3) Hyperlipidemia: Status: Chronic Qualifiers: Hyperlipidemia type: pure hypercholesterolemia Qualified Code(s): E78.00 - Pure hypercholesterolemia, unspecified; E78.0 - Pure hypercholesterolemia (4) Hypertension, essential: Status: Chronic (5) Arthritis: Status: Chronic (6) Chronic kidney disease, stage III (moderate): Status: Chronic Qualifiers: Chronic kidney disease stage 3 subtype: stage 3a (GFR 45-59) Qualified Code(s): N18.31 - Chronic kidney disease, stage 3a (7) Morbid obesity: Status: Acute Narrative A/P Narrative: Assessment and Plans: 1. CoVID pneumonia: Stays in inpatient med surg telemetry Isolation: airborne and contact Supplemental oxygen therapy titrate to achieve spo2>92%, currently on 3L/min Remdesivir Dexamethasone Lovenox Tylenol PRN fever DuoNEB NEB PRN wheezing Robitussin DM PRN cough cbc w/ auto diff in the morning to trend WBC Inflammatory markers Blood cultures X2, no growth to date Serial Lactic acid 2. Essential HTN: Currently normotensive Continue home regimen of oral antihypertensives 3. Mixed dyslipidemia: Continue statin therapy 4. Chronic kidney disease stage III: Avoid nephrotoxic agents Saline lock Daily CMP to trend kidney functions 5. 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 h/o arthritis: Continue Tramadol PRN arthritic pain GI ppx: not currently indicated DVT ppx: Lovenox Code status: Full Prognosis: guarded Disposition: inpatient med surg telemetry Time Spent With Patient Time: Total time spent is greater than 50% in coordination of care (as documented) at patient's floor/unit and/or counseling patient: Total time spent with greater than 50% in coordination of care (as documented) at patient's floor/unit and/or counseling patient:: Greater than 35 minutes
[2021-12-20] MEDS: SIMVASTATIN 20 MG TABLET PO SCH (22:00)
[2021-12-20] MEDS: SENNOSIDES 1 TABLET PO SCH (22:00)
[2021-12-21] MEDS: 0.9 % SODIUM CHLORIDE 10 ML SYRINGE IV SCH (05:11)
[2021-12-21 07:08] LABS: Basophils # (Auto) 0.01 K/mcL (0.00-0.30); Basophils % (Auto) 0.1 % (0.0-2.0); Eosinophils # (Auto) 0.08 K/mcL (0.00-0.70); Hematocrit 44.9 % (40.1-51.0); Hemoglobin 13.9 g/dL (13.7-17.5); Lymphocytes # (Auto) 0.99 K/mcL (1.50-4.80); Lymphocytes % (Auto) 12.3 % (15.5-49.0); Mean Cell Volume 85.4 fL (80.0-100.0); Mean Platelet Volume 9.4 fL (7.4-10.4); Monocytes # (Auto) 0.64 K/mcL (0.10-0.90); Neutrophils % (Auto) 78.6 % (38.0-78.0); Platelet Count 226 K/mcL (140-440); RBC 5.26 M/mcL (4.63-6.08); Red Cell Distribution Width 16.4 % (11.5-14.5)
[2021-12-21 07:55] LABS: ALT/SGPT 12 U/L (<40); AST/SGOT 15 U/L (<40); Albumin 2.6 gm/dL (3.2-5.2); Albumin/Globulin Ratio 0.8 (1.0-2.3); Alkaline Phosphatase 40 U/L (39-117); Bilirubin,Total 0.6 mg/dL (0.1-1.0); Blood Urea Nitrogen 29 mg/dL (8-23); Calcium 8.2 mg/dL (8.6-10.4); Carbon Dioxide 29 mmol/L (22-30); Chloride 97 mmol/L (96-108); Globulin 3.4 gm/dL (2.2-3.7); Glomerular Filtration Rate 49; Glucose 92 mg/dL (70-105); Phosphorous 3.5 mg/dL (2.5-4.5)
[2021-12-21] MEDS: DEXAMETHASONE 4 MG TABLET PO SCH (08:23)
[2021-12-21] MEDS: LISINOPRIL 20 MG TABLET PO SCH (08:23)
[2021-12-21] MEDS: CARVEDILOL 12.5 MG TABLET PO SCH (08:23)
[2021-12-21] MEDS: ENOXAPARIN 40 MG/0.4 ML SYRINGE SQ SCH (08:24)
[2021-12-21] MEDS: SPIRONOLACTONE 25 MG TABLET PO SCH (08:24)
[2021-12-21] MEDS: VITAMIN D3 125 MCG TABLET PO SCH (08:24)
[2021-12-21] MEDS: HYDROCHLOROTHIAZIDE 25 MG TABLET PO SCH (08:24)
[2021-12-21] MEDS: DOCUSATE SODIUM 100 MG CAPSULE PO SCH (08:31)
[2021-12-21] MEDS: CLOBETASOL PROPIONATE 1 DOSE TUBE TOPICAL SCH (08:32)
[2021-12-21] MEDS: LATANOPROST OPHTH DROPS 2.5ML BOTTLE OU SCH (08:32)
[2021-12-21] MEDS: TORSEMIDE 20 MG TABLET PO SCH (10:54)
[2021-12-21] MEDS ORDERED: TORSEMIDE 10 MG TABLET PO SCH (11:00)
--- NOTE | 2021-12-21 11:07 | Discharge Summary ---
Discharge Provider Provider Patient information: Note initiated : 12/21/21 at 11:04 am Service Date, if different from initiated Date: [] Patient: Ryley Moyer 76 y/o M admitted on 12/19/21 for hypoxia. Chief Complaint: [] Date of admission: 12/19/21 18:51 Discharge date: 12/21/21 Primary care physician: Aneesh Head DO Attending physician on admission: Ko Weiss Consults: 12/19/21 Consult to Physician [CONS] Stat Comment: Consulting Provider: Ko Weiss Reason For Exam: Physician to Consult Attending physician on discharge: Ko Charles Pui Discharge Meds Discharge Medications Home Medications carvedilol 25 mg tablet 12.5 mg PO QDAY tab 07/31/16 [History Confirmed 12/21/21 Last Taken Unknown] cholecalciferol (vitamin D3) 125 mcg (5,000 unit) capsule 5,000 unit PO QDAY cap 07/31/16 [History Confirmed 12/21/21 Last Taken Unknown] lisinopril 20 mg tablet 10 mg PO QDAY 07/31/16 [History Confirmed 12/21/21 Last Taken Unknown] pravastatin 40 mg tablet 40 mg PO QHS 07/31/16 [History Confirmed 12/21/21 Last Taken Unknown] latanoprost 0.005 % eye drops 1 drp OPHTHALMIC QHS 09/17/17 [History Confirmed 12/19/21 Last Taken Unknown] epinephrine 0.3 mg/0.3 mL injection, auto-injector (EpiPen 2-Tam) 0.3 mg (0.3 mL) IM ONCE #2 each 05/04/19 [Rx Confirmed 12/21/21 Last Taken Unknown] clobetasol 0.05 % topical cream 1 applic TOPICAL BID 14 Days #15 g 07/18/20 [Rx Confirmed 12/21/21 Last Taken Unknown] tramadol 50 mg tablet 50 mg PO QHS PRN #90 tab 05/16/21 [Rx Confirmed 12/21/21 Last Taken Unknown] torsemide 20 mg tablet 10 mg PO QDAY tab 06/13/21 [History Confirmed 12/21/21 Last Taken Unknown] benzonatate 100 mg capsule 100 mg PO TID PRN #30 cap 12/11/21 [Rx Confirmed 12/21/21 Last Taken Unknown] dextromethorphan-guaifenesin 10 mg-100 mg/5 mL oral liquid (Robafen DM Cough) 10 ml PO Q4HP PRN #500 ml 12/21/21 [Rx Last Taken Unknown] COURSE Hospital Course Hospital course: History of present illness: Mr. Moyer is a 76 year old M history of chronic kidney disease stage III, essential hypertension, mixed dyslipidemia, arthritis, presenting with 1 week history of shortness of breath, and productive cough with yellow sputum. He is vaccinated against COVID-pneumonia. He started to have symptoms of shortness of breath as well as productive cough with yellow sputum 1 week ago. He presented to his PCP office, was being diagnosed with COVID-pneumonia, and was being prescribed with dexamethasone. Today, he was supposed to come back to the office for monoclonal antibodies administrations, but instead was found to be hypoxic with oxygen saturations in the 70s on room air so he was being sent to our ED for further evaluations. He was placed on 2 L of oxygen which maintains his SPO2 in the 90s. His oxygen saturations dropped to the 80s on 2 L of oxygen upon ambulation so admission request was being made. Labs were otherwise largely within normal limits except for mild elevation in inflammatory markers. Chest x-ray showing bilateral pulmonary infiltrates typical for COVID-pneumonia. 12/20: Afebrile overnight. On 3L/min oxygen. Blood cultures no growth to date. On dexamethasone and Remdesivir. c/o improving degree of shortness of breath. c/o productive cough wtih green sputum. Denies wheezing or chest pain. Denies fever, chills, or sweating. Pertinent ROS: c/o improving degree of shortness of breath. c/o productive cough wtih green sputum. Denies wheezing or chest pain. Denies fever, chills, or sweating. 12/21: Reached clinical stability. Decision made to discharge him home with home oxygen therapy. 2 week PCP follow up appointment made for him. All questions were answered prior to patient being physically discharged. Discharge diagnosis: CoVID pneumonia Time Spent with Patient Time attestation: Total time spent providing and/or coordinating discharge services: Time spent: Less than 30 minutes EXAM Constitutional Vitals: Temp Pulse Resp BP Pulse Ox 36.4 C 80 18 119/72 91 12/21/21 07:26 12/21/21 07:26 12/21/21 07:26 12/21/21 07:26 12/21/21 07:26 General appearance: cooperative, morbidly obese and no acute distress Head Head exam: Present atraumatic and normocephalic Eye Eye exam: Present EOMI and PERRL ENT ENT exam: Present mucous membranes moist, normal exam and normal external ear exam Additional comments: Nasal cannula in place Neck Neck exam: Present normal inspection; Absent lymphadenopathy, tenderness or thyromegaly Respiratory Respiratory exam: Present rhonchi; Absent accessory muscle use, respiratory distress or wheezes Cardiovascular Cardiovascular exam: Present normal rate and rhythm; Absent JVD GI/Abdominal GI/Abdominal exam: Present normal bowel sounds and soft; Absent organomegaly or tenderness Rectal Rectal exam: Present deferred Extremities Exam Extremities exam: Present full ROM, normal capillary refill and normal inspection; Absent tenderness Neurological Exam Neurological exam: Present alert, CN II-XII intact and oriented X3; Absent motor sensory deficit Psychiatric Psychiatric exam: Present normal affect and normal mood; Absent anxious or depressed Skin Skin exam: Present dry and intact Discharge Data Data Completed and Pending Labs on day of discharge: Labs from last 24 hours 12/21/21 12/21/21 05:46 05:46 WBC 8.0 RBC 5.26 Hgb 13.9 Hct 44.9 MCV 85.4 MCH 26.4 MCHC 31.0 RDW 16.4 H Plt Count 226 MPV 9.4 Neut % (Auto) 78.6 H Lymph % (Auto) 12.3 L Weld % (Auto) 8.0 Eos % (Auto) 1.0 Baso % (Auto) 0.1 Lymph # (Auto) 0.99 L Weld # (Auto) 0.64 Eos # (Auto) 0.08 Baso # (Auto) 0.01 Absolute Neutrophils 6.32 Sodium 137 Potassium 4.3 Chloride 97 Carbon Dioxide 29 Anion Gap 11.0 BUN 29 H Creatinine 1.4 H GFR Calculation 49 Glucose 92 Calcium 8.2 L Phosphorus 3.5 Magnesium 2.1 Total Bilirubin 0.6 AST 15 ALT 12 Alkaline Phosphatase 40 Total Protein 6.0 Albumin 2.6 L Globulin 3.4 Albumin/Globulin Ratio 0.8 L Preliminary micro results at discharge 12/19/21 10:29 Blood Culture - Preliminary Blood 12/19/21 10:16 Blood Culture - Preliminary Blood Discharge Plan Patient/Caregiver Discharge Instructions Activity: increase activity as tolerated Diet: Regular Diet Prescriptions: New dextromethorphan-guaifenesin [Robafen DM Cough] 10-100 mg/5 mL Liquid 10 ml PO Q4HP PRN (Reason: Cough) Qty: 500 0RF Continued epinephrine [EpiPen 2-Tam] 0.3 mg/0.3 mL auto-injector 0.3 mg IM ONCE Qty: 2 2RF clobetasol 0.05 % cream 1 applic TOPICAL BID 14 Days Qty: 15 0RF carvedilol 25 mg tablet 12.5 mg PO QDAY 0RF pravastatin 40 mg tablet 40 mg PO QHS 0RF lisinopril 20 mg tablet 10 mg PO QDAY 0RF cholecalciferol (vitamin D3) 5,000 unit capsule 5,000 unit PO QDAY 0RF latanoprost 0.005 % drops 1 drp OPHTHALMIC QHS 0RF tramadol 50 mg tablet 50 mg PO QHS PRN (Reason: pain) Qty: 90 0RF torsemide 20 mg tablet 10 mg PO QDAY 0RF benzonatate 100 mg capsule 100 mg PO TID PRN (Reason: cough) Qty: 30 0RF Discontinued spironolacton-hydrochlorothiaz 25-25 mg tablet 1 tab PO QDAY 0RF dexamethasone 6 mg tablet 6 mg PO QDAY Qty: 10 0RF Follow Up Plan Follow up with: Aneesh Head DO [Primary Care Provider] - 01/03/22 1:00 pm (You will be seeing Patty Ferguson for your hospital follow up visit.) Patient Disposition: Home, Self-Care Prognosis: Fair Rehab Potential: Good I certify that the patient requires SNF services: No Overall status at discharge: patient is progressing back to baseline Discharge Orders: Discharge Order (Routine); Ordered 12/21/21 Ordered By: Ko Weiss
[2021-12-21] MEDS: REMDESIVIR 100 MG in 0.9 % SODIUM CHLORIDE 250 ML IV SCH (11:21)
== END 2021-12-21 14:30 | disposition home or self-care (01) | DRG 177 ==
LOC: ED 09:16 → MEDSUR 18:51
PROVIDERS: ADMIT Internal Medicine; ATTEND Internal Medicine